=== PATIENT | female | born 1975 | race Two or more races ===

== ENCOUNTER 2020-05-31 00:18 | Emergency (ER) | payer MEDICAID ==
[~2020-05-31] VITALS: Ht 165.1 cm; Wt 68.0 kg
[2020-05-31 04:01] LABS: Hemoglobin 10.8 g/dL (12.2-16.2); Nucleated Red Blood Cells % 0.1 %; White Blood Cell 10.1 10^3/uL (4.4-10.8)
[2020-05-31 04:03] LABS: Basophils # (auto) 0.1 10 ^3/uL (0-0.2); Basophils % (auto) 0.7 % (0.0-2.0); Eosinophils # (auto) 0.1 10 ^3/uL (0-0.8); Eosinophils % (auto) 1.5 % (0.0-7.0); Lymphocytes # (auto) 1.2 10 ^3/uL (0.4-5.4); Lymphocytes % (auto) 11.9 % (10.0-50.0); Mean Corpuscular Hgb Conc. 31.6 g/dL (32.0-36.0); Mean Corpuscular Volume 75.9 fL (80.0-100.0); Monocytes # (auto) 0.8 10 ^3/uL (0-1.3); Monocytes % (auto) 7.5 % (0.0-12.0); Neutrophils # (auto) 7.9 10 ^3/uL (1.6-8.6); Neutrophils % (auto) 78.4 % (37.0-80.0); Platelet Count (auto) 461 10^3/uL (140-450); Red Blood Cells 4.49 10^6/uL (4.0-5.20); Red Cell Distribution Width 16.7 % (11.8-14.3)
[2020-05-31 04:19] LABS: Albumin 3.7 g/dL (3.4-5.0); Calcium 8.6 mg/dL (8.5-10.1); Potassium 3.7 mmol/L (3.5-5.1)
[2020-05-31 04:22] LABS: Bilirubin, Total 0.3 mg/dL (0.2-1.0); Total Protein 8.5 g/dL (6.4-8.2)
[2020-05-31 09:59] VITALS: BP 113/65
== END 2020-05-31 10:00 | disposition home or self-care (01) ==
LOC: EDBD 00:18 → EDUNIT# 00:18 → ER 00:21
DX: R42 Dizziness and giddiness (principal); Z88.2 Allergy status to sulfonamides; Z88.6 Allergy status to analgesic agent
CPT/HCPCS: 36415; 71045; 80053; 85025; 93005

== ENCOUNTER 2020-09-18 16:44 | Emergency (ER) | payer MEDICAID ==
[~2020-09-18] VITALS: Ht 172.7 cm; Wt 66.2 kg
[2020-09-18 17:07] VITALS: BP 127/78
[2020-09-20] MEDS ORDERED: LEVO500T31 PO (17:50)
[2020-09-20] MEDS ORDERED: IPRIH IN (17:50)
[2020-09-20] MEDS ORDERED: DEXA6TAB6 PO (17:50)
[2020-09-20] MEDS ORDERED: ALBUAER3 IN (17:50)
== END 2020-09-19 00:14 | disposition left against medical advice (07) ==
LOC: ER 16:44
DX: R05 Cough (principal); R53.83 Other fatigue; R19.7 Diarrhea, unspecified; Z53.21 Procedure and treatment not carried out due to patient leaving prior to being seen by health care provider

== ENCOUNTER 2020-09-20 05:21 | Emergency (ER) | payer MEDICAID ==
[~2020-09-20] VITALS: Ht 172.7 cm; Wt 74.4 kg
[2020-09-20] MEDS ORDERED: AZITHROMYCIN 500MG/ 250ML 250 ML IV ONE (09:15)
[2020-09-20] MEDS ORDERED: cefTRIAXone 1GM/50ML D5W 50 ML IV ONE (09:15)
[2020-09-20 11:41] LABS: Basophils # (auto) 0 10 ^3/uL (0-0.2); Basophils % (auto) 0.4 % (0.0-2.0); Eosinophils # (auto) 0 10 ^3/uL (0-0.8); Hemoglobin 11.8 g/dL (12.2-16.2); Lymphocytes # (auto) 0.6 10 ^3/uL (0.4-5.4); Lymphocytes % (auto) 10.9 % (10.0-50.0); Neutrophils # (auto) 4.4 10 ^3/uL (1.6-8.6); Nucleated Red Blood Cells % 0.2 %; Red Cell Distribution Width 17.8 % (11.8-14.3)
[2020-09-20 11:44] LABS: Hematocrit 36.7 % (36.0-46.0); Mean Corpuscular Hemoglobin 23.5 pg (28.0-32.0); Mean Corpuscular Hgb Conc. 32.2 g/dL (32.0-36.0); Mean Corpuscular Volume 72.8 fL (80.0-100.0); Monocytes # (auto) 0.3 10 ^3/uL (0-1.3); Monocytes % (auto) 6.3 % (0.0-12.0); Neutrophils % (auto) 82.4 % (37.0-80.0); Red Blood Cells 5.04 10^6/uL (4.0-5.20); White Blood Cell 5.3 10^3/uL (4.4-10.8)
[2020-09-20 12:06] LABS: Albumin 3.6 g/dL (3.4-5.0); Calcium 8.6 mg/dL (8.5-10.1); Potassium 3.9 mmol/L (3.5-5.1)
[2020-09-20 12:08] LABS: BUN/Creatinine Ratio 5.8
[2020-09-20 12:50] LABS: Bilirubin, Total 0.3 mg/dL (0.2-1.0); Total Protein 8.8 g/dL (6.4-8.2)
[2020-09-20] MEDS ORDERED: DexAMETHasone SOD PHOS 10MG/1ML VIAL INJ PO ONE (17:00)
[2020-09-20] MEDS ORDERED: ALBUAER3 IN (17:50)
[2020-09-20] MEDS ORDERED: IPRIH IN (17:50)
[2020-09-20] MEDS ORDERED: DEXA6TAB6 PO (17:50)
[2020-09-20] MEDS ORDERED: LEVO500T31 PO (17:50)
[2020-09-20] MEDS ORDERED: IOHEXOL 350 MG/ML 100ML IJ ONE (19:05)
[2020-09-20] MEDS ORDERED: ALBUTEROL SULF HFA 90MCG INH 200DOSE IN ONE (20:30)
[2020-09-20 21:00] VITALS: BP 128/74
[2020-09-21] MEDS ORDERED: ALBUTEROL SULF HFA 90MCG INH 200DOSE IN SCH (06:00)
== END 2020-09-20 21:48 | disposition home or self-care (01) ==
LOC: ER 05:21
DX: U07.1 COVID-19 (principal)
CPT/HCPCS: 36415; 71045; 80053; 83605; 85025; 85379; 87040; 87426; 93005; 96365; 96366; 96367; 99285; J0456; J0696; J1100

== ENCOUNTER 2020-09-25 10:43 | Emergency (ER) | payer MEDICAID ==
[~2020-09-25] VITALS: Ht 172.7 cm; Wt 63.5 kg
[~2020-09-25 10:43] MED LIST: ALBUAER3 IN; DEXA6TAB6 PO; IPRIH IN; LEVO500T31 PO
[2020-09-25] MEDS ORDERED: LIDOCAINE VISCOUS 2% 15ML UD PO ONE (11:15)
[2020-09-25] MEDS ORDERED: DONNATAL 5ml ORAL Elix (BELLADONNA ALK-PHENOBARB) PO ONE (11:15)
[2020-09-25] MEDS ORDERED: ALUM & MAG HYDROX-SIMETH LIQ(MAALOX) 30 ML PO ONE (11:15)
[2020-09-25 12:22] LABS: Basophils # (auto) 0 10 ^3/uL (0-0.2); Eosinophils # (auto) 0 10 ^3/uL (0-0.8); Hemoglobin 11.2 g/dL (12.2-16.2); Lymphocytes # (auto) 1.6 10 ^3/uL (0.4-5.4); Monocytes # (auto) 0.8 10 ^3/uL (0-1.3); Nucleated Red Blood Cells % 0.1 %
[2020-09-25 12:23] LABS: Basophils % (auto) 0.1 % (0.0-2.0); Eosinophils % (auto) 0.2 % (0.0-7.0); Hematocrit 34.4 % (36.0-46.0); Lymphocytes % (auto) 22.2 % (10.0-50.0); Mean Corpuscular Hemoglobin 23.5 pg (28.0-32.0); Mean Corpuscular Hgb Conc. 32.6 g/dL (32.0-36.0); Mean Corpuscular Volume 72.2 fL (80.0-100.0); Monocytes % (auto) 11.7 % (0.0-12.0); Neutrophils # (auto) 4.6 10 ^3/uL (1.6-8.6); Neutrophils % (auto) 65.8 % (37.0-80.0); Red Blood Cells 4.77 10^6/uL (4.0-5.20); Red Cell Distribution Width 17.1 % (11.8-14.3)
[2020-09-25 12:46] LABS: Anion Gap 8 (5-15); Blood Urea Nitrogen 11 mg/dL (7-18); Calcium 8.5 mg/dL (8.5-10.1); Carbon Dioxide 25 mmol/L (21-32); Chloride 106 mmol/L (98-107); Glucose 133 mg/dL (74-106); Sodium 139 mmol/L (136-145)
[2020-09-25 12:52] LABS: Alanine Aminotransferase 34 U/L (13-56); Alkaline Phosphatase 60 U/L (45-117); Aspartate Aminotransferase 22 U/L (15-37); BUN/Creatinine Ratio 16.7; Bilirubin, Total 0.3 mg/dL (0.2-1.0); GFR African American 124 mL/min; GFR Non-African American 102 mL/min; Total Protein 7.4 g/dL (6.4-8.2)
[2020-09-25 13:35] VITALS: BP 120/86
== END 2020-09-25 13:38 | disposition home or self-care (01) ==
LOC: ER 10:43
DX: U07.1 COVID-19 (principal); M79.10 Myalgia, unspecified site; R07.89 Other chest pain; Z79.2 Long term (current) use of antibiotics; Z79.899 Other long term (current) drug therapy; Z88.5 Allergy status to narcotic agent; Z88.2 Allergy status to sulfonamides
CPT/HCPCS: 36415; 71045; 80053; 84484; 85025; 93005